=== PATIENT | male | born 1965 | race African-American/Black ===

== ENCOUNTER 2024-11-30 15:16 | Emergency (ER) | payer BC ==
[~2024-11-30] VITALS: Ht 180.3 cm; Wt 129.3 kg
[2024-11-30 15:19] VITALS: O2SAT 98
[2024-11-30 15:29] VITALS: TEMP 36.7; O2SAT 98
[2024-11-30] MEDS ORDERED: HYDR-4001 MT (18:09)
[2024-11-30] MEDS ORDERED: NAPR-681 PO (18:09)
[2024-11-30] MEDS ORDERED: BO1 TP (18:11)
[2024-11-30 18:35] VITALS: BP 173/96; PULSE 101; RESP 16
[2024-11-30] MEDS: HYDROCODONE/ACETAMINOPHEN 5/325MG TABLET PO STA (18:35)
== END 2024-11-30 19:16 | disposition home or self-care (01) ==
LOC: ER 15:25
DX: S52.591A Other fractures of lower end of right radius, initial encounter for closed fracture (principal); S80.211A Abrasion, right knee, initial encounter; S80.212A Abrasion, left knee, initial encounter; W01.0XXA Fall on same level from slipping, tripping and stumbling without subsequent striking against object, initial encounter; Y93.89 Activity, other specified; Y92.89 Other specified places as the place of occurrence of the external cause; Y99.8 Other external cause status
CPT/HCPCS: 73110; 99283